=== PATIENT | female | born 1995 | race Caucasian/White ===

== ENCOUNTER → 2020-06-04 08:59 | Outpatient (BNVA) | payer OTHER, SELFPAY | PROVIDERS: Visit Provider Social Worker Clinical | DX: F43.12 Post-traumatic stress disorder, chronic (principal); F33.2 Major depressive disorder, recurrent severe without psychotic features; F41.1 Generalized anxiety disorder; F60.3 Borderline personality disorder; F84.0 Autistic disorder | CPT/HCPCS: 90834 ==

== ENCOUNTER → 2020-11-13 08:39 | Outpatient (BNVA) | payer OTHER, SELFPAY | PROVIDERS: Visit Provider Social Worker Clinical | DX: F43.12 Post-traumatic stress disorder, chronic (principal); F33.2 Major depressive disorder, recurrent severe without psychotic features; F41.1 Generalized anxiety disorder; F60.3 Borderline personality disorder | CPT/HCPCS: 90834 ==

== ENCOUNTER → 2022-05-22 09:25 | Outpatient (BNVA) | payer BC, OTHER, SELFPAY | PROVIDERS: Visit Provider Psychiatry & Neurology Psychiatry | DX: F33.2 Major depressive disorder, recurrent severe without psychotic features (principal); F41.1 Generalized anxiety disorder; F60.3 Borderline personality disorder | CPT/HCPCS: 80061; 83036 ==

== ENCOUNTER → 2022-07-04 09:12 | Outpatient (BNVA) | payer BC, SELFPAY ==
[2022-06-05 09:46] VITALS: BP 130/94; BMI 51.5
== END ==
PROVIDERS: Visit Provider Family Medicine
DX: N93.8 Other specified abnormal uterine and vaginal bleeding (principal); L72.0 Epidermal cyst; J34.3 Hypertrophy of nasal turbinates
CPT/HCPCS: 80053; 84443; 85025

== ENCOUNTER → 2022-08-01 11:50 | Outpatient (BNVA) | payer BC, SELFPAY ==
[2022-06-05 09:46] VITALS: BP 130/94; BMI 51.5
== END ==
PROVIDERS: PCP Family Medicine; Visit Provider Family Medicine
DX: R79.89 Other specified abnormal findings of blood chemistry (principal); Z23 Encounter for immunization
CPT/HCPCS: 84439

== ENCOUNTER 2022-10-31 10:42 | Outpatient (CLI) | payer BC, MEDICAID, SELFPAY ==
[2022-06-05 09:46] VITALS: BP 130/94; BMI 51.5
--- NOTE | 2022-10-31 11:00 | CTR_ITS ---
PROCEDURE INFORMATION: Exam: CT Maxillofacial Without Contrast, Sinus Exam date and time: 10/31/2022 10:55 AM Age: 27 years old Clinical indication: Sinusitis; Chronic; Additional info: Nasal polyp TECHNIQUE: Imaging protocol: CT Maxillofacial without contrast. Focus on the sinuses. Radiation optimization: All CT scans at this facility use at least one of these dose optimization techniques: automated exposure control; mA and/or kV adjustment per patient size (includes targeted exams where dose is matched to clinical indication); or iterative reconstruction. COMPARISON: No relevant prior studies available. RADIATION DOSE METRICS: Total DLP (mGy-cm): 383.38 FINDINGS: Frontal sinuses: Right frontal sinus is completely opacified and left frontal sinus is largely opacified. The left frontal sinus shows several fluid levels. Nasofrontal ducts are nearly opacified. Ethmoid sinuses: Bilateral ethmoid air cells are incompletely but nearly opacified with several visible fluid levels. Sphenoid sinuses: Left sphenoid sinus is opacified and right sphenoid sinus is nearly opacified. Bilateral sphenoethmoidal recess are nearly completely opacified. Maxillary sinuses: Right maxillary sinus is completely opacified and left maxillary sinus is nearly opacified. Nasal cavity: Bilateral ostiomeatal complexes are completely opacified. Nasal septum is deviated greater to the right. Bilateral nasal cavities are opacified. This shows rounded configuration at posterior margins as soft tissue protrudes through nasal choana into nasopharynx. This nearly abuts the anterior tonsillar margins and the tonsils appear mildly prominent. The anterior margin is also rounded as it projects into the anterior nasal vestibules. These are consistent with large nasal polyps. Orbital cavities: Orbits are normal. Globes are unremarkable. Bones/joints: There is no evidence of erosion of skull base. There is bony thickening of margins of paranasal sinuses related to chronic sinusitis. Soft tissues: Unremarkable. Auditory system: Mastoid air cells and middle ear cavities are well developed and well aerated. Pharynx: There are postinflammatory calcifications in tonsils. CT/CT sinus wo con* [id number] IMPRESSION: Extensive opacification of paranasal sinuses diffusely. Bilateral nasal polyps.
== END 2022-10-31 10:43 | disposition home or self-care (01) ==
LOC: RAD 10:43
PROVIDERS: PCP Family Medicine; Visit Provider Otolaryngology
DX: J33.9 Nasal polyp, unspecified (principal)
CPT/HCPCS: 70486

== ENCOUNTER 2023-04-07 06:35 | Outpatient (CLI) | payer BC, SELFPAY ==
[2023-03-11 07:44] VITALS: BP 130/94; BMI 51.5
== END 2023-04-07 06:36 | disposition home or self-care (01) ==
LOC: RT 06:35
PROVIDERS: PCP Family Medicine; Visit Provider Family Medicine
DX: R06.2 Wheezing (principal); J45.909 Unspecified asthma, uncomplicated
CPT/HCPCS: 94010; 94729

== ENCOUNTER → 2023-05-12 13:24 | Outpatient (BNVA) | payer OTHER, SELFPAY ==
[2023-03-11 07:44] VITALS: BP 130/94; BMI 51.5
== END ==
PROVIDERS: PCP Family Medicine; Visit Provider Psychiatry & Neurology Neurology
DX: F60.3 Borderline personality disorder (principal); F43.12 Post-traumatic stress disorder, chronic
CPT/HCPCS: 80061; 83036

== ENCOUNTER → 2023-06-27 13:51 | Outpatient (BNVA) | payer BC, SELFPAY ==
[2023-06-04 15:10] VITALS: BP 122/86; BMI 49.1
== END ==
PROVIDERS: PCP Family Medicine; Visit Provider Registered Nurse Neonatal Intensive Care
DX: R05.9 Cough, unspecified (principal); J06.9 Acute upper respiratory infection, unspecified
CPT/HCPCS: 87426

== ENCOUNTER → 2023-08-20 09:36 | Outpatient (BNVA) | payer BC, MEDICAID, SELFPAY ==
[2023-08-14 07:40] VITALS: BP 122/86; BMI 49.1
== END ==
PROVIDERS: PCP Family Medicine; Visit Provider Nurse Practitioner Family
DX: L85.8 Other specified epidermal thickening (principal); L72.0 Epidermal cyst; B35.3 Tinea pedis; D22.62 Melanocytic nevi of left upper limb, including shoulder
CPT/HCPCS: 99214

== ENCOUNTER → 2023-10-14 18:25 | Outpatient (BNVA) | payer BC, MEDICAID, SELFPAY ==
[2023-08-14 07:40] VITALS: BP 122/86; BMI 49.1
== END ==
PROVIDERS: PCP Family Medicine; Visit Provider Nurse Practitioner
DX: S92.355A Nondisplaced fracture of fifth metatarsal bone, left foot, initial encounter for closed fracture (principal); X58.XXXA Exposure to other specified factors, initial encounter
CPT/HCPCS: 73630

== ENCOUNTER → 2023-11-06 08:06 | Outpatient (BNVA) | payer SELFPAY ==
[2023-08-14 07:40] VITALS: BP 122/86; BMI 49.1
== END ==
PROVIDERS: PCP Family Medicine; Visit Provider Podiatrist Foot & Ankle Surgery
DX: M79.672 Pain in left foot (principal); S92.355D Nondisplaced fracture of fifth metatarsal bone, left foot, subsequent encounter for fracture with routine healing; X58.XXXD Exposure to other specified factors, subsequent encounter
CPT/HCPCS: 73630

== ENCOUNTER → 2023-11-27 08:34 | Outpatient (BNVA) | payer BC, MEDICAID, SELFPAY ==
[2023-08-14 07:40] VITALS: BP 122/86; BMI 49.1
== END ==
PROVIDERS: PCP Family Medicine; Visit Provider Podiatrist Foot & Ankle Surgery
DX: S92.355A Nondisplaced fracture of fifth metatarsal bone, left foot, initial encounter for closed fracture; X58.XXXA Exposure to other specified factors, initial encounter
CPT/HCPCS: 73630

== ENCOUNTER → 2024-01-04 16:01 | Outpatient (BNVA) | payer BC, MEDICAID, SELFPAY ==
[2023-12-16 08:06] VITALS: BP 122/86; BMI 49.1
== END ==
PROVIDERS: PCP Family Medicine; Visit Provider Family Medicine
DX: R79.89 Other specified abnormal findings of blood chemistry (principal)
CPT/HCPCS: 84439; 84443

== ENCOUNTER → 2024-02-23 08:57 | Outpatient (BNVA) | payer SELFPAY ==
[2024-02-15 07:42] VITALS: BP 122/86; BMI 49.1
== END ==
PROVIDERS: PCP Family Medicine; Visit Provider Nurse Practitioner Women's Health
DX: N92.6 Irregular menstruation, unspecified (principal)
CPT/HCPCS: 76830; 76856

== ENCOUNTER 2024-04-06 20:00 | Outpatient (CLI) | payer BC, SELFPAY ==
[2024-03-24 08:02] VITALS: BP 122/86; BMI 49.1
== END 2024-04-06 20:01 | disposition home or self-care (01) ==
LOC: SLEEP 04-07 02:14
PROVIDERS: PCP Family Medicine; Visit Provider Family Medicine
DX: G47.10 Hypersomnia, unspecified (principal)
CPT/HCPCS: 95810

== ENCOUNTER → 2024-05-12 09:30 | Outpatient (BNVA) | payer OTHER, SELFPAY ==
[2024-04-19 10:38] VITALS: BP 122/86; BMI 49.1
== END ==
PROVIDERS: PCP Family Medicine; Visit Provider Psychiatry & Neurology Psychiatry
DX: F60.3 Borderline personality disorder (principal); F33.2 Major depressive disorder, recurrent severe without psychotic features
CPT/HCPCS: 80061; 83036

== ENCOUNTER → 2024-06-08 10:47 | Outpatient (BNVA) | payer BC, SELFPAY ==
[2024-05-18 07:40] VITALS: BP 129/90; BMI 51.4
== END ==
DX: Z76.89 Persons encountering health services in other specified circumstances (principal); R79.89 Other specified abnormal findings of blood chemistry; E66.01 Morbid (severe) obesity due to excess calories
CPT/HCPCS: 80053; 80061; 82306; 84439; 84443; 85025

== ENCOUNTER → 2024-08-10 08:16 | Outpatient (BNVA) | payer BC, MEDICAID, SELFPAY ==
[2024-06-20 07:53] VITALS: BP 129/90; BMI 51.4
== END ==
PROVIDERS: Visit Provider Nurse Practitioner Women's Health
DX: N93.9 Abnormal uterine and vaginal bleeding, unspecified (principal); R10.31 Right lower quadrant pain
CPT/HCPCS: 76856

== ENCOUNTER 2024-09-20 08:47 | Day surgery (SDC) | payer BC, MEDICAID, SELFPAY ==
[2024-09-12 09:41] VITALS: BP 129/90; BMI 51.4
[2024-09-12 11:44] LABS: Basophils # 0.1 10^3/uL (0.0-0.1); Basophils % 0.7 %; Eosinophils # 0.2 10^3/uL (0.0-0.8); Eosinophils % 2.2 %; Hematocrit 43.3 % (36-47); Lymphocytes # 3.2 10^3/uL (0.8-4.8); Lymphocytes % 32.6 %; Mean Corpuscular HGB Conc 32.1 g/dL (30-55); Mean Corpuscular Hemoglobin 26.5 pg (27-33); Mean Corpuscular Volume 82.6 fl (85-98); Mean Platelet Volume 10.4 fL (7.4-10.4); Monocytes # 0.6 10^3/uL (0.2-0.9); Monocytes % 5.8 %; Neutrophils # 5.77 10^3/uL (1.8-7.7); Neutrophils % 58.3 %; Nucleated Red Blood Cells % 0 %; Platelet Count 361 10^3/cmm (157-399); Red Blood Count 5.24 10^6/uL (3.85-5.65); Red Cell Distribution Width 12.9 % (12.1-15.1); White Blood Count 9.89 10^3/uL (3.29-11.43)
[2024-09-12 11:47] LABS: Bilirubin Urine Negative (Negative); Blood Urine 2+ (Negative); Glucose Urine UA Negative (Normal); Ketones Urine Negative (Negative); Leukocyte Esterase Urine 2+ (Negative); Nitrate Urine Negative (Negative); Protein Urine Trace (Negative); Specific Gravity, Urine 1.028 (1.005-1.030); Urine Appearance Cloudy (CLEAR); Urine Color Yellow (Yellow)
[2024-09-12 11:50] LABS: OR HCG Qualitative Urine Negative (Negative)
[2024-09-12 11:52] LABS: Add Urine Microscopic? YES; Bacteria Urine 4+ /hpf; Hyaline Casts Urine 7.85 /lpf; Squamous Epithelial Cell Urine 21-50 /hpf (0-5); WBC Urine >100 /hpf (0-5)
[2024-09-12 12:00] LABS: UA Slide Review UA Slide Review Perf
[2024-09-12 12:01] LABS: Add Urine Culture? Yes; Fine Granular Casts Urine 0-4 /lpf
[2024-09-12 12:01] LABS: Alanine Aminotransferase 14 U/L (0-33); Albumin Level 4.1 g/dL (3.5-5.2); Alkaline Phosphatase 121 U/L (35-105); Anion Gap 16.6 (5-19); Aspartate Amino Transferase 12 U/L (0-32); Blood Urea Nitrogen 8 mg/dL (6-20); Calcium 9.4 mg/dL (8.5-10.5); Carbon Dioxide 23 mmol/L (22-29); Chloride 103 mmol/L (98-107); Glomerular Filtration Rate 98.9 mL/min (90-130); Glucose 108 mg/dL (65-115); Osmolality Calculated 287 mOsm/kg (285-295); Potassium 3.6 mmol/L (3.5-5.1); Sodium 139 mmol/L (136-145); Total Bilirubin 0.3 mg/dL (0.15-1.2); Total Protein 8.1 g/dL (6.6-8.7)
[2024-09-20] VITALS (11 sets, daily range): BP systolic 110–140; BP diastolic 57–94; PULSE 67–109; RESP 16–18; TEMP 36.1–36.6; O2SAT 92–99; BMI 51.5
[2024-09-20 09:11] LABS: OR HCG Qualitative Urine Negative (Negative)
--- NOTE | 2024-09-20 09:46 | W.PM.OPSUD ---
Surgery/Procedure H&P Update DATE OF PROCEDURE: September 20, 2024 DATE H&P PERFORMED: 09/12/24 H&P UPDATE INFORMATION: I have reviewed H&P completed within last 30 days, I have examined patient prior to procedure and No changes to prior documentation PREOP DIAGNOSIS: exam intolereance PLANNED PROCEDURE: Operation Date: 09/20/24 10:05 Proposed Procedures p Exam Under Anesthesia 64901, N98.6(Not Applicable) - Justin Ludwig MD
[2024-09-20] MEDS: sodium chloride 0.9% 1,000 ML 30 ML IV (09:54)
[2024-09-20] MEDS: ketorolac 30 mg/mL INJ IVP (09:55)
[2024-09-20] MEDS: scopolamine 1.5 Patch 1 PATCH TRANSDERMA (09:55)
--- NOTE | 2024-09-20 10:05 | ANES.PREANE2 ---
Pre-Anesthetic Assessment Height/Weight: Height 1.65 m Weight 140.614 kg Temp Pulse Resp BP Pulse Ox O2 Del Method 97.4 F L 90 18 127/85 97 Room Air 09/20/24 09:17 09/20/24 09:17 09/20/24 09:17 09/20/24 09:17 09/20/24 09:17 09/20/24 09:21 Preop Diagnosis: exam intolereance Operation Date: 09/20/24 10:05 Proposed Procedures p Exam Under Anesthesia 94537, N98.6(Not Applicable) - Justin Ludwig MD Familial anesthetic complications: None Was Beta Otilia taken within 24 hours: N/A Was Clonidine taken within 24 hours: N/A Last intake: Intake Last Liquid Date 09/19/24 Last Liquid Time 21:00 Last Solid Date 09/19/24 Last Solid Time 21:00 Social No alcohol and No tobacco Exam alert, oriented x 3, clear to auscultation bilaterally and regular rate & rhythm Airway Mallampati: Class IV Dentition: other (multiple broken poor dentition) Pulmonary Asthma Metabolic Morbid Obesity Anesthetic Plan ASA status: 3 Anesthesia: General Risk of > 500 ml blood loss (7ml/kg in children): No Medications/Allergies Home Medications Medication Instructions Recorded Confirmed Last Taken Type ibuprofen 200 mg tablet 200 mg PO Q6H PRN Pain, Mild 05/10/20 09/12/24 09/18/24 History melatonin 10 mg capsule 10 mg PO .HS 06/06/20 09/12/24 09/18/24 History epinephrine 0.3 mg/0.3 mL 0.3 mg IM Q4H PRN Allergic Reaction 06/02/23 09/12/24 Unknown History injection, auto-injector albuterol sulfate 90 mcg/actuation 2 puff inhalation QID PRN 06/26/23 09/12/24 09/09/24 Rx aerosol inhaler shortness of breath or wheezing #8.5 grams budesonide-formoterol HFA 160 2 puff inhalation Q12H #10.2 grams 06/26/23 09/12/24 09/19/24 Rx mcg-4.5 mcg/actuation aerosol inhaler (Symbicort) medroxyprogesterone 150 mg/mL 150 mg IM .12 weeks #1 mL 02/10/24 09/12/2424 Rx intramuscular suspension (Depo-Provera) four prong cane #1 ea 02/18/24 09/07/24 Unknown Rx bupropion HCl 300 mg 24 hr tablet, 300 mg PO QAM #30 tabs 09/07/24 09/12/24 09/19/24 Rx extended release (Wellbutrin XL) hydroxyzine HCl 50 mg tablet 50 mg PO QID PRN anxiety/insomnia 09/07/24 09/12/24 09/19/24 Rx #120 tabs prazosin 2 mg capsule 4 mg (2 x 2 mg) PO .HS #60 caps 09/07/24 09/12/24 09/19/24 Rx cetirizine 10 mg tablet (Zyrtec) 10 mg PO BEDTIME 09/12/24 09/12/24 09/19/24 History fluoxetine 40 mg capsule 80 mg PO BEDTIME 09/12/24 09/12/24 09/19/24 History fluticasone propionate 50 2 spray intranasal DAILY 09/20/24 09/12/24 09/19/24 History mcg/actuation nasal spray,suspension (Flonase Allergy Relief) Allergies Allergy/AdvReac Type Severity Reaction Status Date / Time amoxicillin Allergy ALGY-Hives Verified 09/12/24 08:01 animal dander Allergy ALGY-Conges Verified 09/12/24 08:01 clara bee pollen Allergy ALGY-Conges Verified 09/12/24 08:01 clara mold Allergy ALGY-Conges Verified 09/12/24 08:01 clara shellfish derived Allergy ALGY-Hives Verified 09/12/24 08:01 Current Medications Generic Name Dose Route Start Last Admin Trade Name Freq PRN Reason Stop Dose Admin Sodium Chloride 1,000 mls @ 30 mls/hr 09/20/24 09:00 09/20/24 09:54 Sodium Chloride 0.9% IV 09/21/24 08:59 30 mls/hr .Q24H MEGA Administration PFSH Anesthesia Medical History Fatigue Left foot pain Psychiatric care Surgical History No significant past surgical history Family History Other Cancer Diabetes Denies family history of Colon cancer Ovarian cancer Heart disease Breast cancer Family history of thyroid problem Hypertension Uterine cancer Stroke Hyperchloremia Social History Smoking and tobacco/nicotine status: never used tobacco/nicotine Alcohol intake: never Substance/Drug Use: never Adopted: No Household members: significant other Housing: Apartment Marital status: Single Highest education level completed: Some College, No Degree service: No Current occupational status: disabled Current occupational exposures/hazards: No Pets and animals: Yes Pets & animals: cat(s) Leisure activites: art, games, reading and other Leisure activities details: likes to do crafts Sexually active: No Do you think of yourself as: Bisexual Current gender identity: Female Junie/Christianity: None Special junie needs: No Agree to transfusion: Yes Female Reproductive History Date of last menstrual period: 06/29/24 Spontaneous abortions: No Data Anesthesia 09/12/24 11:35 09/12/24 11:35 Cardiac Studies: No Data to Display
--- NOTE | 2024-09-20 12:31 | PM.OP ---
Operative Report Date of procedure: September 20, 2024 Pre-op diagnosis: Cannot be adequately examined Exam under anesthesia Post-op diagnosis: same Procedure done: Exams under anesthesia Cervical cancer screening with Pap Specimens removed/disposition: Cervical cytology Surgeon: Justin Ludwig MD Estimated blood loss (mL): 5 IV fluids (mL): 500 Complications: Minimal bleeding from hymen Findings: Normal pelvic exam Procedure: After informed consent, the patient was taken to the operating room where general anesthesia was administered. She was placed in the dorsal lithotomy position. Pre-Procedure Time-Out verifying the correct patient identity, correct procedure verified with consent, correct site and side, correct patient position, availability of correct implants and any special equipment or requirements was performed and acknowledge by the OR team. The patient was examined under anesthesia and found to have a normal uterus with normal adnexa. A weighted speculum was placed in the vagina, and a pap smear was performed for cervial cancer screening. The instruments were removed from the vagina, and excellent hemostasis was noted. The patient tolerated the procedure well, and sponge, lap and needle count were correct times two. The patient taken to the recovery room in good condition.
--- NOTE | 2024-09-20 14:32 | SUR.PHASEII ---
13:30 AWAITING DISCHARGE ORDERS FROM DOCTOR WYLIE.
== END 2024-09-20 15:40 | disposition home or self-care (01) ==
PROVIDERS: Anesthesiology; Visit Provider Obstetrics & Gynecology
PROC: (CPT 57410; principal; 2024-09-20 10:05)
DX: Z12.4 Encounter for screening for malignant neoplasm of cervix (principal); J45.909 Unspecified asthma, uncomplicated; E66.01 Morbid (severe) obesity due to excess calories; Z68.43 Body mass index [BMI] 50.0-59.9, adult
CPT/HCPCS: 57410; 36415; 81025; 86850; 86900; 87624; J1100; J1885; J2250; J2405; J2704; J3010; J7030

== ENCOUNTER → 2024-12-06 14:10 | Outpatient (BNVA) | payer BC, SELFPAY ==
[2024-09-12 09:41] VITALS: BP 129/90; BMI 51.4
== END ==
DX: R53.83 Other fatigue (principal)
CPT/HCPCS: 80053; 83036; 84439; 84443; 84481; 85025

== ENCOUNTER 2024-12-20 19:54 | Emergency (ER) | payer BC, MEDICAID, SELFPAY ==
[2024-09-12 09:41] VITALS: BP 129/90; BMI 51.4
[2024-12-20 19:56] VITALS: BP 135/83; PULSE 64; RESP 18; TEMP 36.5; O2SAT 97
[2024-12-20 20:54] VITALS: BP 135/85
--- NOTE | 2024-12-20 21:04 | CTR_ITS ---
PROCEDURE INFORMATION: Exam: CT Abdomen And Pelvis With Contrast Exam date and time: 12/20/2024 10:08 PM Age: 29 years old Clinical indication: Abdominal pain; Generalized; Additional info: Rlq pain TECHNIQUE: Imaging protocol: Computed tomography of the abdomen and pelvis with contrast. Radiation optimization: All CT scans at this facility use at least one of these dose optimization techniques: automated exposure control; mA and/or kV adjustment per patient size (includes targeted exams where dose is matched to clinical indication); or iterative reconstruction. Contrast material: OMNIPAQUE 350; Contrast volume: 100 ml; Contrast route: INTRAVENOUS (IV); COMPARISON: US pelvic complete* [id number] 08/10/2024 8:20 AM RADIATION DOSE METRICS: Total DLP (mGy-cm): 1356.63 FINDINGS: Lungs: Unremarkable. Liver: Normal. No mass. Gallbladder and biliary ducts: Large calcified gallstone. Pancreas: Normal. No ductal dilation. Spleen: Normal. No splenomegaly. Adrenal glands: Normal. No mass. Kidneys and ureters: Normal. No hydronephrosis. Stomach and bowel: Large colonic stool burden. Appendix: Appendix is unremarkable. Intraperitoneal space: Unremarkable. No free air. No significant fluid collection. Vasculature: Unremarkable. No abdominal aortic aneurysm. Lymph nodes: Unremarkable. No enlarged lymph nodes. Urinary bladder: Unremarkable as visualized. Reproductive: 2.4 cm mildly hyperdense right adnexal lesion. Bones/joints: Unremarkable. No acute fracture. Soft tissues: Unremarkable. CT/CT abdomen pelvis w con* [id number] IMPRESSION: 1. No evidence of appendicitis. 2. Cholelithiasis. 3. 2.4 cm mildly hyperdense right adnexal lesion, which may represent hemorrhagic cyst.
--- NOTE | 2024-12-20 21:24 | W.ED.ABDPA2 ---
HPI - Abdominal Pain General: Chief Complaint: Abdominal Pain Stated Complaint: Neck Pain to [place] Time Seen by Provider: 12/20/24 20:19 Source: patient Mode of arrival: ambulatory Limitations: no limitations History of Present Illness: Patient is a 29-year-old female who presents emergency department planing of right lower quadrant abdominal pain beginning today. She notes that it began in her back and is now localized to the right lower quadrant, does radiate to her left lower quadrant. Still has her appendix and gallbladder. Notes that the pain right now is currently a 7/10, took ibuprofen for the pain but did not help. She states that it feels like a constant throbbing, has never had this pain in the past. States that the only thing that makes it feel better is lying on her side as well as sitting in a hot bath. Any movement she states makes it worse. Also states that she took Pepto-Bismol for pain but this did not help. She is not reporting any dysuria or hematuria, or any history of kidney stones or kidney infection. Also denies any history of abdominal surgeries. States that she is feeling nauseous, however has not had any vomiting or diarrhea. No other pertinent past medical history. Her vitals at this time are within normal limits. MD elicited complaint: abdominal pain Pertinent past history: none Onset (ago): hour(s) Pain Consistency: constant Location: RLQ Severity: moderate Quality: other (Throbbing) Radiation: LLQ Exacerbating factors: movement Relieving factors: other (Lying on her side, seated in a hot bath) Associated Symptoms: Reports nausea; Denies bloating, change in stool character, chills, constipation, diarrhea, dysuria, fever(s), hematochezia and vomiting Treatments prior to arrival: NSAIDs Related Data Home Medications ?Medication ?Instructions ?Recorded ?Confirmed ibuprofen 200 mg tablet 200 mg PO Q6H PRN Pain, Mild 05/10/20 12/06/24 melatonin 10 mg capsule 10 mg PO .HS 06/06/20 12/06/24 epinephrine 0.3 mg/0.3 mL 0.3 mg IM Q4H PRN Allergic Reaction 06/02/23 12/06/24 injection, auto-injector cetirizine 10 mg tablet (Zyrtec) 10 mg PO BEDTIME 09/12/24 12/06/24 fluoxetine 40 mg capsule 80 mg PO BEDTIME 09/12/24 12/06/24 Previous Rx's ?Medication ?Instructions ?Recorded four prong cane #1 ea 02/18/24 bupropion HCl 300 mg 24 hr tablet, 300 mg PO QAM #30 tabs 09/07/24 extended release (Wellbutrin XL) hydroxyzine HCl 50 mg tablet 50 mg PO QID PRN anxiety/insomnia 09/07/24 #120 tabs prazosin 2 mg capsule 4 mg (2 x 2 mg) PO .HS #60 caps 09/07/24 acetaminophen 325 mg capsule 325 mg PO Q4H PRN fever or pain 09/20/24 #60 caps ibuprofen 800 mg tablet 800 mg PO TID PRN pain #60 tabs 09/20/24 medroxyprogesterone 150 mg/mL See Rx Instructions .Route 10/10/24 intramuscular suspension .COMPLEX #1 mL albuterol sulfate 90 mcg/actuation 2 puff inhalation QID PRN 12/06/24 aerosol inhaler shortness of breath or wheezing #8.5 grams budesonide-formoterol HFA 160 2 puff inhalation Q12H #10.2 grams 12/06/24 mcg-4.5 mcg/actuation aerosol inhaler (Symbicort) fluticasone propionate 50 2 spray intranasal DAILY #16 grams 12/06/24 mcg/actuation nasal spray,suspension (Flonase Allergy Relief) polyethylene glycol 3350 17 4 g PO DAILY #119 grams 12/20/24 gram/dose oral powder (Miralax) Allergies Allergy/AdvReac Type Severity Reaction Status Date / Time amoxicillin Allergy ALGY-Hives Verified 12/20/24 20:03 animal dander Allergy ALGY-Conges Verified 12/20/24 20:03 clara bee pollen Allergy ALGY-Conges Verified 12/20/24 20:03 clara mold Allergy ALGY-Conges Verified 12/20/24 20:03 clara shellfish derived Allergy ALGY-Hives Verified 12/20/24 20:03 Review of Systems General: Reports: 10 or more systems reviewed and unremarkable except in HPI and below Const: Denies: fever(s), chills, change in appetite, change in weight or diaphoresis ENMT: Denies: throat pain or hoarseness Card: Denies: chest pain, palpitations or lightheadedness Resp: Denies: dyspnea, productive cough or wheezing GI: Reports: abdominal pain and nausea; Denies: vomiting, diarrhea, constipation, bloating, change in stool character or hematochezia : Denies: flank pain, difficulty voiding, dysuria, urinary frequency or urinary urgency Musc: Reports: back pain; Denies: neck pain Skin/Breast: Denies: rash or new lesions Neuro: Denies: headache(s) or dizziness PFSH ED PFSH: Medical History Influenza vaccine administered Fatigue Left foot pain Psychiatric care Surgical History No significant past surgical history Family History Other Cancer Diabetes Denies family history of Colon cancer Ovarian cancer Heart disease Breast cancer Family history of thyroid problem Hypertension Uterine cancer Stroke Hyperchloremia Social History Smoking and tobacco/nicotine status: never used tobacco/nicotine Alcohol intake: never Substance/Drug Use: never Adopted: No Household members: significant other Housing: Apartment Marital status: Single Highest education level completed: Some College, No Degree service: No Current occupational status: disabled Current occupational exposures/hazards: No Pets and animals: Yes Pets & animals: cat(s) Leisure activites: art, games, reading and other Leisure activities details: likes to do crafts Sexually active: No Do you think of yourself as: Bisexual Current gender identity: Female Junie/Sikhism: None Special junie needs: No Agree to transfusion: Yes Female Reproductive History: Spontaneous abortions: No Physical Exam Const: COMMON NORMALS: patient oriented x3 and no limitations GENERAL APPEARANCE: cooperative NUTRITIONAL APPEARANCE: obese morbidly obese ORIENTATION/CONSCIOUSNESS: Yes awake HENMT: COMMON NORMALS: normocephalic, atraumatic and moist oral mucous membranes HEAD & SCALP: normocephalic and atraumatic Eye: COMMON NORMALS: EOMs intact bilaterally and conjunctivae normal CONJUNCTIVA: Yes conjunctivae normal Neck/C-Spine: COMMON NORMALS: full ROM and no meningeal signs Resp: COMMON NORMALS: normal respiratory effort, No retractions, No use of accessory muscles and clear to auscultation bilaterally AUSCULTATION: clear to auscultation bilaterally Cardio: COMMON NORMALS: regular rate and regular rhythm RATE: regular rate RHYTHM: regular rhythm GI: COMMON NORMALS: Soft to palpation INSPECTION: Yes central obesity AUSCULTATION: Yes normoactive bowel sounds PALPATION: Yes Soft to palpation, Yes Tenderness to palpation present (GI) Details: LLQ and RLQ and Yes Guarding due to palpation present (GI) (Voluntary) RECTAL EXAM: deferred : COMMON NORMALS: Yes no CVA tenderness BLADDER/KIDNEY EXAM: Yes no CVA tenderness Back/Pelvis: COMMON NORMALS: no CVA tenderness Extremity: COMMON NORMALS: normal to inspection and full ROM Neuro: COMMON NORMALS: patient oriented x3, moves all extremities, no focal motor deficits and no sensory deficits noted MENINGEAL SIGNS: Yes no meningeal signs Skin: COMMON NORMALS: no rashes or lesions noted GENERAL SKIN EXAM: no rashes or lesions noted Course Vital Signs: Vital signs: Vital Signs Temperature 97.7 F 12/20/24 19:56 Pulse Rate 86 12/20/24 22:42 Respiratory Rate 18 12/20/24 19:56 Blood Pressure 142/102 12/20/24 22:42 Pulse Oximetry 97 12/20/24 22:42 Oxygen Delivery Me thod Room Air 12/20/24 22:42 MDM - Abdominal Pain Medical Decision Making Patient presented with right lower quadrant pain beginning today, started in her back and radiates to her left lower quadrant. Tender palpation bilateral lower quadrants on exam, rest of exam unremarkable. Vitals have been within normal limits. Leukocytosis on CBC, mild drop in her potassium otherwise no significant lab abnormalities. Urinalysis with clean of any infection, there was blood present however. CT obtain did not show any signs of appendicitis, did show large stool burden cholelithiasis. Also cannot rule out that she passed a kidney stone, which could explain her leukocytosis and hematuria on UA. She was rechecked after receiving Toradol and nausea medications to IV, states that she felt much better. Ultimately no reason for admission or surgical consultation at this time. Will give her MiraLAX for her constipation and have her increase her dietary fiber intake as well as drink plenty of fluids. Told her to follow-up with primary care in regards to her gallstones, does not appear to be any obstructive process at this time.. Discussed with her return precautions to which she verbalized understanding. Lab Data 12/20/24 21:25 12/20/24 21: Labs/Radiology: Radiology Impressions Abdomen/Pelvis CT 12/20/24 21:04 IMPRESSION: 1. No evidence of appendicitis. 2. Cholelithiasis. 3. 2.4 cm mildly hyperdense right adnexal lesion, which may represent hemorrhagic cyst. Laboratory Results WBC 16.51 10^3/uL (3.29-11.43) H 12/20/24: RBC 4.97 10^6/uL (3.85-5.65) 12/20/24: Hgb 13.20 g/dL (11.27-16.99) 12/20/24: Hct 41.3 % (36-47) 12/20/24: MCV 83.1 fl (85-98) L 12/20/24: MCH 26.6 pg (27-33) L 12/20/24: MCHC 32.0 g/dL (30-55) 12/20/24: RDW 13.1 % (12.1-15.1) 12/20/24: Plt Count 325 10^3/cmm (157-399) 12/20/24: MPV 10.9 fL (7.4-10.4) H 12/20/24: Neut % (Auto) 87.6 % 12/20/24: Lymph % (Auto) 8.7 % 12/20/24: [place] % (Auto) 3.0 % 12/20/24: Eos % (Auto) 0.1 % 12/20/24: Baso % (Auto) 0.4 % 12/20/24: Neut # (Auto) 14.47 10^3/uL (1.8-7.7) H 12/20/24: Lymph # (Auto) 1.4 10^3/uL (0.8-4.8) 12/20/24: [place] # (Auto) 0.5 10^3/uL (0.2-0.9) 12/20/24: Eos # (Auto) 0.0 10^3/uL (0.0-0.8) 12/20/24 21:25 Baso # (Auto) 0.1 10^3/uL (0.0-0.1) 12/20/24: Nucleated RBC % (auto) 0 % 12/20/24: Nucleated RBCs # 0.0 /100WBC 12/20/24 21: Sodium 138 mmol/L (136-145) 12/20/24 21: Potassium 3.3 mmol/L (3.5-5.1) L 12/20/24 21: Chloride 103 mmol/L (98-107) 12/20/24: Carbon Dioxide 20 mmol/L (22-29) L 12/20/24: Anion Gap 18.3 (5-19) 12/20/24: BUN 8 mg/dL (6-20) 12/20/24: Creatinine 0.6 mg/dL (0.5-0.9) 12/20/24: GFR Calculation 118.2 mL/min (90-130) 12/20/24: Glucose 122 mg/dL (65-115) H 12/20/24: Calculated Osmolality 286 mOsm/kg (285-295) 12/20/24: Calcium 8.9 mg/dL (8.5-10.5) 12/20/24: Total Bilirubin 0.2 mg/dL (0.15-1.2) 12/20/24: AST 10 U/L (0-32) 12/20/24: ALT 14 U/L (0-33) 12/20/24 21: Alkaline Phosphatase 124 U/L (35-105) H 12/20/24: Total Protein 7.9 g/dL (6.6-8.7) 12/20/24: Albumin 4.1 g/dL (3.5-5.2) 12/20/24: Globulin 3.8 g/dL (1.3-4.6) 12/20/24: Lipase 13 U/L (13-60) 12/20/24 21: HCG, Qual Negative (Negative) 12/20/24 21: Urine Color Yellow (Yellow) 12/20/24: Urine Appearance Clear (CLEAR) 12/20/24: Urine pH 5.0 (5-7) 12/20/24: Ur Specific [place] 1.061 (1.005-1.030) H 12/20/24 22: Urine Protein Trace (Negative) A 12/20/24: Urine Glucose (UA) Negative (Normal) 12/20/24: Urine Ketones Negative (Negative) 12/20/24: Urine Blood 2+ (Negative) A 12/20/24: Urine Nitrate Negative (Negative) 12/20/24: Urine Bilirubin Negative (Negative) 12/20/24: Urine Urobilinogen 1.0 mg/dL (Negative) 12/20/24: Ur Leukocyte Esterase Negative (Negative) 12/20/24: Urine RBC 5-10 /hpf (0-2) H 12/20/24: Urine WBC None /hpf (0-5) 12/20/24: Ur Squamous Epith Cells 0-4 /hpf (0-5) H 12/20/24: Amorphous Sediment Not Reportable 12/20/24: Urine Bacteria None /hpf (NONE) 12/20/24: Urine Mucus 1+ /hpf 12/20/24: All radiology interpretation(s) finalized by discharge Discharge Plan Discharge Patient Disposition: Home Clinical Impression: Constipation, Cholelithiasis, Leukocytosis Condition: Stable Prescriptions: New polyethylene glycol 3350 [Miralax] 17 gram/dose powder 4 g PO DAILY Qty: 119 0RF No Action ibuprofen 200 mg tablet 200 mg PO Q6H PRN (Reason: Pain, Mild) melatonin 10 mg capsule 10 mg PO .HS epinephrine 0.3 mg/0.3 mL auto-injector 0.3 mg IM Q4H PRN (Reason: Allergic Reaction) (DME) four prong cane See Rx Instructions .Route .MEDSUPPLY Qty: 1 0RF Rx Instructions: As directed prazosin 2 mg capsule 4 mg PO .HS Qty: 60 11RF hydroxyzine HCl 50 mg tablet 50 mg PO QID PRN (Reason: anxiety/insomnia) Qty: 120 11RF bupropion HCl [Wellbutrin XL] 300 mg tablet extended release 24 hr 300 mg PO QAM Qty: 30 11RF fluticasone propionate [Flonase Allergy Relief] 50 mcg/actuation spray,suspension 2 spray intranasal DAILY Qty: 16 0RF Rx Instructions: administer into each nostril albuterol sulfate 90 mcg/actuation HFA aerosol inhaler 2 puff inhalation QID PRN (Reason: shortness of breath or wheezing) Qty: 8.5 5RF budesonide-formoterol [Symbicort] 160-4.5 mcg/actuation HFA aerosol inhaler 2 puff inhalation Q12H Qty: 10.2 5RF medroxyprogesterone 150 mg/mL suspension See Rx Instructions .ROUTE .COMPLEX Qty: 1 2RF Dose Instruction: INJECT 150MG INTRAMUSCULARLY EVERY 12 WEEKS Rx Instructions: INJECT 150MG INTRAMUSCULARLY EVERY 12 WEEKS fluoxetine 40 mg capsule 80 mg PO BEDTIME cetirizine [Zyrtec] 10 mg tablet 10 mg PO BEDTIME ibuprofen 800 mg tablet 800 mg PO TID PRN (Reason: pain) Qty: 60 0RF acetaminophen 325 mg capsule 325 mg PO Q4H PRN (Reason: fever or pain) Qty: 60 0RF Discharge Orders: Discharge ED (Routine); Ordered 12/20/24 Ordered By: Oscar Valdez Referrals: Rebecca Richardson, WORKFORCE ANALYST [Primary Care Provider] - Patient Instructions: Constipation (ED), Gallstones (ED) Activity Restrictions/Additional Instructions: MiraLAX for constipation. Ibuprofen or Tylenol for pain. Make sure that you are drinking plenty of fluids and increase your dietary fiber. Please follow-up closely with primary care for general reevaluation, please return with any new or concerning. Print Language: Nigerien Coding Level of Care Code ED Multiple Slide Operator for Herberth Lakhani
[2024-12-20] MEDS: ketorolac 60 mg/2 mL INJ 30 MG IVP (21:27)
[2024-12-20] MEDS: metoclopramide 5 mg/mL SDV 2 mL 10 MG IVP (21:28)
[2024-12-20 21:34] VITALS: BP 129/87; PULSE 62; O2SAT 96
[2024-12-20 21:40] LABS: Basophils # 0.1 10^3/uL (0.0-0.1); Basophils % 0.4 %; Eosinophils % 0.1 %; Hematocrit 41.3 % (36-47); Lymphocytes # 1.4 10^3/uL (0.8-4.8); Lymphocytes % 8.7 %; Mean Corpuscular Hemoglobin 26.6 pg (27-33); Mean Corpuscular Volume 83.1 fl (85-98); Mean Platelet Volume 10.9 fL (7.4-10.4); Monocytes # 0.5 10^3/uL (0.2-0.9); Neutrophils # 14.47 10^3/uL (1.8-7.7); Neutrophils % 87.6 %; Nucleated Red Blood Cells % 0 %; Platelet Count 325 10^3/cmm (157-399); Red Blood Count 4.97 10^6/uL (3.85-5.65); Red Cell Distribution Width 13.1 % (12.1-15.1); White Blood Count 16.51 10^3/uL (3.29-11.43)
[2024-12-20 21:57] LABS: Alanine Aminotransferase 14 U/L (0-33); Albumin Level 4.1 g/dL (3.5-5.2); Alkaline Phosphatase 124 U/L (35-105); Anion Gap 18.3 (5-19); Aspartate Amino Transferase 10 U/L (0-32); Blood Urea Nitrogen 8 mg/dL (6-20); Calcium 8.9 mg/dL (8.5-10.5); Carbon Dioxide 20 mmol/L (22-29); Chloride 103 mmol/L (98-107); Creatinine Clr Calc Pharmacy 199.5171; Globulin 3.8 g/dL (1.3-4.6); Glomerular Filtration Rate 118.2 mL/min (90-130); Glucose 122 mg/dL (65-115); Lipase 13 U/L (13-60); Osmolality Calculated 286 mOsm/kg (285-295); Potassium 3.3 mmol/L (3.5-5.1); Sodium 138 mmol/L (136-145); Total Bilirubin 0.2 mg/dL (0.15-1.2); Total Protein 7.9 g/dL (6.6-8.7)
[2024-12-20 21:59] LABS: HCG, Serum Qual Negative (Negative)
[2024-12-20] MEDS: iohexol 350 mg/mL 500 mL Btl (per mL) IV (22:13)
[2024-12-20 22:40] LABS: Bilirubin Urine Negative (Negative); Blood Urine 2+ (Negative); Glucose Urine UA Negative (Normal); Ketones Urine Negative (Negative); Leukocyte Esterase Urine Negative (Negative); Nitrate Urine Negative (Negative); Protein Urine Trace (Negative); Urine Appearance Clear (CLEAR); Urine Color Yellow (Yellow)
[2024-12-20 22:42] VITALS: BP 142/102; PULSE 86; O2SAT 97
[2024-12-20 23:01] LABS: Add Urine Culture? No; Add Urine Microscopic? YES; Mucus Urine 1+ /hpf; Specific Gravity, Urine 1.061 (1.005-1.030); Squamous Epithelial Cell Urine 0-4 /hpf (0-5)
[2024-12-20 23:17] VITALS: BP 131/99; PULSE 94; O2SAT 98
== END 2024-12-20 23:18 | disposition home or self-care (01) ==
PROVIDERS: Emergency Provider Physician Assistant
DX: K59.00 Constipation, unspecified (principal); K80.20 Calculus of gallbladder without cholecystitis without obstruction; D72.829 Elevated white blood cell count, unspecified
CPT/HCPCS: 74177; 80053; 81001; 83690; 84703; 85025; 96374; 96375; 99285; J1885; J2765

== ENCOUNTER 2025-01-31 12:53 | Outpatient (CLI) | payer BC, MEDICAID, SELFPAY ==
[2024-09-12 09:41] VITALS: BP 129/90; BMI 51.4
--- NOTE | 2025-01-31 13:30 | CT_ITS ---
WS: [id number] CT HEAD TECHNIQUE: Noncontrast and contrast-enhanced CT of the head. CLINICAL INFORMATION: gait instability, pre-syncope COMPARISON: None. DLP: 2218.[address] scans at [facility] use at least one of these dose optimization techniques: automated exposure control; mA and/or kV adjustment per patient size (includes targeted exams where dose is matched to clinical indication); or iterative reconstruction. FINDINGS: No evidence of intracranial hemorrhage or mass effect. Ventricular system and basal cisterns are patent. No hydrocephalus. No abnormal intracranial enhancement. Mild polypoid mucosal thickening in the paranasal sinuses. Mastoid air cells are well aerated. No extra-axial fluid collections. Normal kitchen-white differentiation.. No abnormal intracranial enhancement. CT/CT head wo/w con [id number] IMPRESSION: 1. No acute intracranial findings. 2. No abnormal intracranial enhancement. 3. Mild polypoid mucosal thickening in the paranasal sinuses. 4. Mastoid air cells are well aerated.
[2025-01-31] MEDS: iohexol 350 mg/mL 500 mL Btl (per mL) IV (14:07)
== END 2025-01-31 12:54 | disposition home or self-care (01) ==
PROVIDERS: PCP Family Medicine; Visit Provider Family Medicine
DX: R26.81 Unsteadiness on feet (principal); R55 Syncope and collapse; J34.89 Other specified disorders of nose and nasal sinuses
CPT/HCPCS: 70470

== ENCOUNTER → 2025-05-16 10:27 | Outpatient (BNVA) | payer OTHER, SELFPAY ==
[2024-09-12 09:41] VITALS: BP 129/90; BMI 51.4
== END ==
PROVIDERS: PCP Family Medicine; Visit Provider Psychiatry & Neurology Psychiatry
DX: F60.3 Borderline personality disorder (principal); F33.2 Major depressive disorder, recurrent severe without psychotic features; F41.1 Generalized anxiety disorder
CPT/HCPCS: 80061; 83036

== ENCOUNTER → 2025-05-22 09:55 | Outpatient (BNVA) | payer BC, MEDICAID, SELFPAY ==
[2024-09-12 09:41] VITALS: BP 129/90; BMI 51.4
== END ==
PROVIDERS: PCP Family Medicine; Referring Provider Family Medicine; Visit Provider Psychiatry & Neurology Neurology
DX: R55 Syncope and collapse (principal); R26.89 Other abnormalities of gait and mobility
CPT/HCPCS: 36415; 82306; 82607; 82746; 83540; 83735; 83921; 84132; 85025

== ENCOUNTER 2025-05-29 12:39 | Outpatient (CLI) | payer BC, MEDICAID, SELFPAY ==
[2024-09-12 09:41] VITALS: BP 129/90; BMI 51.4
--- NOTE | 2025-05-29 13:15 | USCV_ITS ---
Titussidra Nilda Age: 30 Gender: F : 1995 Exam Date: 05/29/2025 13:02 Ordering Phys: Marv Bull MD Technologist: [employer] Exam Location: [facility] [place] Indication: syncope Risk Factors: Previous Vascular Surgery: Right Brachial BP: / Left Brachial BP: / Right Left Velocity (cm/s) Spectral Plaque Velocity (cm/s) Spectral Plaque Syst/Diast Broadening Syst/Diast Broadening 151.50/20.30 Prox CCA 113.60/ 37.20 128.30/30.60 Mid CCA 127.30/ 40.90 80.70/ 17.30 Distal CCA 94.80 / 24.20 70.20/ 19.20 Prox ICA 34.60 / 15.00 54.30/ 22.70 Mid ICA 78.60 / 31.90 47.30/ 17.40 Distal ICA 86.10 / 26.90 75.40 ECA 71.50 0.90 ICA/CCA 0.90 Antegrade Vertebral Antegrade 42.60/ 15.00 cm/s 49.60/ 13.00 cm/s Tri Subclavian Tri 94.80 99.90 FINDINGS Comparison: none available. No significant elevation of systolic or diastolic velocities. Waveforms are normal. No significant amount of calcified plaque or intimal thickening identified. CONCLUSIONS Normal carotid doppler ultrasound. Dr. Ann Ohara DO (Electronically Signed) Final Date: 29 May 2025 13:46 S
== END 2025-05-29 12:40 | disposition home or self-care (01) ==
LOC: RAD 12:40
PROVIDERS: PCP Family Medicine; Visit Provider Psychiatry & Neurology Neurology
DX: R55 Syncope and collapse (principal)
CPT/HCPCS: 93880

== ENCOUNTER 2025-06-15 11:42 | Oncology outpatient (recurring) (ONCR) | payer BC, MEDICAID, SELFPAY ==
[2024-09-12 09:41] VITALS: BP 129/90; BMI 51.4
[2025-05-31 13:01] VITALS: BP 138/84; BMI 52.8
[2025-06-01 10:13] LABS: Hematocrit 42.8 % (36-47); Hemoglobin 13.80 g/dL (11.27-16.99); Mean Corpuscular HGB Conc 32.2 g/dL (30-55); Mean Corpuscular Hemoglobin 26.4 pg (27-33); Mean Corpuscular Volume 82.0 fl (85-98); Nucleated Red Blood Cells % 0 %; Platelet Count 360 10^3/cmm (157-399); Red Blood Count 5.22 10^6/uL (3.85-5.65); White Blood Count 9.03 10^3/uL (3.29-11.43)
[2025-06-01 10:33] LABS: Alanine Aminotransferase 15 U/L (0-33); Albumin Level 4.2 g/dL (3.5-5.2); Alkaline Phosphatase 136 U/L (35-105); Anion Gap 15.7 (5-19); Aspartate Amino Transferase 12 U/L (0-32); Blood Urea Nitrogen 6 mg/dL (6-20); Calcium 9.3 mg/dL (8.5-10.5); Carbon Dioxide 22 mmol/L (22-29); Chloride 105 mmol/L (98-107); Creatinine Clr Calc Pharmacy 202.6699; Ferritin 27 ng/mL (15-150); Globulin 3.7 g/dL (1.3-4.6); Glucose 86 mg/dL (65-115); Iron 70 ug/dL (37-145); Osmolality Calculated 285 mOsm/kg (285-295); Potassium 3.7 mmol/L (3.5-5.1); Sodium 139 mmol/L (136-145); Total Iron Binding Capacity 369 mcg/dl; Total Protein 7.9 g/dL (6.6-8.7); Unsaturated Iron Binding 299 ug/dL (112-347)
[2025-06-01 10:48] LABS: Vitamin B12 251 pg/mL (232-1245)
== END 2025-06-25 23:59 | disposition home or self-care (01) ==
PROVIDERS: Internal Medicine; PCP Family Medicine; Visit Provider Psychiatry & Neurology Neurology
DX: Z53.9 Procedure and treatment not carried out, unspecified reason (principal)
CPT/HCPCS: 36415; 80053; 82607; 82728; 83010; 83090; 83540; 83550; 83615; 83921; 85025